=== PATIENT | male | born 1980 | race Caucasian/White ===

== ENCOUNTER 2016-12-31 06:43 | Day surgery (SDC) | payer BC ==
[~2016-12-31 06:43] MED LIST: ACETAMINOPHEN 500 MG TABLET PO PRN; HYDROmorphone HCL 2 MG/ML VIAL IV PRN; MAG HYDROX/ALUMINUM HYD/SIMETH 30 ML UDC PO PRN; MAGNESIUM HYDROXIDE 30 ML UDC PO PRN; ONDANSETRON HCL/PF 2 MG/ML VIAL IV PRN; PROMETHAZINE HCL 25 MG in DEXTROSE 5 % IN WATER 50 ML IV PRN; RINGERS SOLUTION,LACTATED 1,000 ML IV PRN; ZOLPIDEM TARTRATE 5 MG TABLET PO PRN; ceFAZolin SODIUM 1 GM VIAL IV PRN; diphenhydrAMINE HCL 50 MG/ML VIAL IV PRN; oxyCODONE HCL/ACETAMINOPHEN 1 TAB TABLET PO PRN
--- OUTSIDE RECORDS SUMMARY | 2016-12-31 06:47 | XMS REPORT | Continuity of Care Document ---
:1980 Author Organization [facility] ([facility]) [place] [address] Phone [phone] Care Team Providers Name Role Phone Jonathan Daugherty Primary Care Provider [phone] Source Comments This disclosure is being made pursuant to the Care Everywhere program, applicable federal and state laws, and may not contain all informaitonavailable regarding this patient.[facility] ([facility]) Active Allergies and Adverse Reactions No Known Allergies Current Medications Prescription Sig. Disp. Refills Start Date End Date Status hydrochlorothiazide take 1 Tab by mouth 60 Tab 3 04/16/2009 Active (HYDRODIURIL) 12.5 mg daily for 30 days. Tab tablet Indications: Hypertension oxyCODONE-acetaminophen Take 1-2 Tabs by 20 Tab 0 07/01/2010 Active (PERCOCET) 5-325 mg per mouth every 6 hours tablet as needed. Indications: Pain ciprofloxacin (CIPRO) Take 1 Tab by mouth 2 12 Tab 0 07/01/2010 Active 500 mg tablet times daily. Indications: Orchitis atenolol (TENORMIN) 25 Take 1 Tab by mouth 60 Tab 6 09/30/2010 Active mg tablet daily. Indications: Hypertension omeprazole (PRILOSEC) 40 Take 1 Cap by mouth 60 Cap 6 09/30/2010 Active mg capsule daily. Indications: Gastroesophageal Reflux Active Problems Problem Noted Date PAIN IN LIMB 11/16/2010 Other physical therapy 11/16/2010 Hemorrhage of gastrointestinal tract, unspecified 04/27/2007 Family history of diabetes mellitus 04/18/2007 Screening for lipoid disorders 04/18/2007 Esophageal reflux 04/18/2007 Acute gastric ulcer with hemorrhage, without mention of obstruction 04/18/2007 Social History Tobacco Use Types Packs/Day Years Used Date Never Smoker Alcohol Use Drinks/Week oz/Week Comments Yes 0.0 Last Filed Vital Signs Vital Sign Reading Time Taken Blood Pressure 139/93 09/30/2010 9:02 AM [employer] Pulse 76 09/30/2010 9:02 AM [employer] Temperature 36.8 C (98.2 F) 09/30/2010 9:02 AM [employer] Respiratory Rate 20 07/01/2010 11:43 AM CDT Height 1.772 m (5' 9.75") 09/30/2010 9:02 AM [employer] Weight 119.2 kg (262 lb 12.6 oz) 09/30/2010 9:02 AM [employer] Body Mass Index 37.96 09/30/2010 9:02 AM [employer] Oxygen Saturation 96% 07/01/2010 11:43 AM CDT Plan of Care Health Maintenance Due Date Last Done Comments Hepatitis B Vaccine (1 of 3 - Primary Series) 1980 Tdap Vaccine 1989 MMR Vaccine 1996 Td Vaccine 1996 Lipid Disorder Screening 02/27/2014 02/27/2009 Influenza Vaccine: Seasonal (#1) 05/10/2016 Results from Last 3 Months Not on file
--- NOTE | 2016-12-31 09:44 | OR ---
Operative Report - Dictated Report Narrative: Date: 12/31/2016 Physician: Kaushal Pierre M.D. Bark Skinner: Deep Valerio PA-C Preoperative diagnosis: Right Shoulder biceps tendinopathy, possible labral tear , acromioclavicular arthrosis Postoperative diagnosis: Right Shoulder biceps tendinopathy, type 1 labral tear , acromioclavicular arthrosis Procedure: Right shoulder arthroscopy with biceps tenodesis, labral debridement , Geraldo procedure Anesthesia: General plus regional Complications: None Estimated blood loss: Minimal Specimens: Bone for disposal Retained implants: [employer] 8 x 25 mm peek biceptor interference screw Drains: None Indications: Mr. Gil Is a 36 year-old gentleman who has been followed in my clinic with complaints of shoulder pain consistent biceps pathology as well as acromioclavicular arthrosis. Physical exam and diagnostic imaging were consistent with his complaints and concern for biceps tendinopathy possible labral tear and acromial clavicular arthrosis. Conservative measures have failed including, but not limited to, passage of time, activity modification, medications, physical therapy/home exercise program, or injections. The risks, benefits, and alternatives were discussed in clinic. The risks being , bleeding, infection, blood clots, nerve, tendon, ligament, blood vessel injury, persistent pain, arthrosis, stiffness, need for prolonged therapy, need for additional procedures, and persistent symptoms. Consent was obtained in the clinic. Procedure: After marking the correct extremity in the preoperative holding area, a timeout was performed in the operating room. IV antibiotics consisting of Ancef were administered prior to the procedure. A general followed by regional anesthetic was induced by the nurse surgical services manager. This was in the supine position, then the patient was transitioned to a beachchair position with all bony prominences well-padded, head in neutral, the nonoperative arm well supported, and the legs padded with SCDs in place. The operative shoulder was then prepped and draped in a standard sterile fashion. Preoperatively the shoulder had full passive range of motion, and and gross instability. After marking out the bony landmarks, saline was infused into the joint through a posterior lateral portal site. A rodney incision was made, and the blunt trocar and cannula was introduced into the shoulder joint. An accessory portal was placed in the rotator cuff interval using a spinal needle for guidance. Upon initial evaluation, the biceps tendon showed A greater than 50% thickness tear from the insertion of the labrum to the portion that exited the joint. The middle glenohumeral ligament was intact. Subscapularis tendon was unremarkable. The glenoid showed no arthrosis. The humeral head articular surface showed no arthrosis. The anterior labrum was frayed but intact. The superior labrum was frayed at the insertion but intact. The pouch was and unremarkable. The posterior labrum was unremarkable. The supraspinatus tendon was partially torn less than 10% just behind the biceps. The infraspinatus tendon was unremarkable. A tag stitch was placed and the biceps and the biceps was tenotomized as it inserted on the labrum. Shaver was utilized in order to debride the frayed labrum as well as the root of the biceps. Attention was then turned to the subacromial space. Subacromial bursectomy was performed utilizing the prior portals. The coracoacromial ligament was unremarkable. The bursal side of the rotator cuff demonstrated to tear. The acromial arch was unremarkable. Attention was then turned to the distal clavicle. A longitudinal incision was made over the acromioclavicular joint. This was sharply dissected down to the chromic clavicular capsule. Cautery was utilized for hemostasis. A longitudinal capsulotomy was made and elevated off the anterior posterior aspects of the distal clavicle. There is notable hypertrophic bone and loss of joint space between the acromion and clavicle. Protecting the surrounding soft tissues, an oscillating saw was utilized in order to resect approximately 7-10 mm of bone from the distal clavicle. The remaining clavicle was stable after removing this. The shoulders place a range of motion and showed no remaining impingement between the acromion and the clavicle. Wounds were then thoroughly irrigated. The capsule was closed with interrupted 0 Vicryl to subcutaneous tissue with 3-0 Vicryl. Skin was closed with 4-0 nylon. Force in incision was then made over the bicipital groove. The deltoid was split in line with its fibers. The biceps was identified in the extra articular portion of the bicipital groove and the groove was roughened. The biceps was measured to 8 mm. A guidewire followed by acorn reamer was utilized in order to prepare a tunnel. The biceps was then mobilized into the hole and tacked in place. The interference screw was then placed securing the biceps within the groove. This was done with the biceps in the normal made attention and was noted to be secure after the repair. Once it was felt that the pathology had been addressed, the wounds were thoroughly irrigated. 0 Vicryl was utilized in order to repair the deltoid fascia. 3-0 Vicryl was placed in the subcutaneous tissue. The rotator cuff incision as well as the portal sites were closed with interrupted nylon. Dressings consisting of Xeroform, 4 x 4, ABD, soft roll, and tape were applied. All sponge, needle, blade, and instrument counts were correct prior to closing the wounds. The patient was awoken and transferred to the postanesthesia care unit in stable condition.
[2016-12-31 12:09] VITALS: BP 142/78
[2016-12-31] MEDS ORDERED: SENNOSIDES/DOCUSATE SODIUM 1 TAB TABLET PO SCH (21:00)
== END 2016-12-31 06:44 | disposition home or self-care (01) ==
LOC: AMB 06:43
PROVIDERS: ATTEND Orthopaedic Surgery
PROC: 0LS30ZZ Reposition Right Upper Arm Tendon, Open Approach (ICD-10-PCS; 2016-12-31)
PROC: 0RHJ04Z Insertion of Internal Fixation Device into Right Shoulder Joint, Open Approach (ICD-10-PCS; 2016-12-31)
PROC: 0PB90ZZ Excision of Right Clavicle, Open Approach (ICD-10-PCS; 2016-12-31)
PROC: 0RBJ4ZZ Excision of Right Shoulder Joint, Percutaneous Endoscopic Approach (ICD-10-PCS; principal; 2016-12-31 08:00)
DX: S43.491A Other sprain of right shoulder joint, initial encounter (principal); M13.811 Other specified arthritis, right shoulder; I10 Essential (primary) hypertension; K21.9 Gastro-esophageal reflux disease without esophagitis; Z68.35 Body mass index [BMI] 35.0-35.9, adult